=== PATIENT | male | born 1945 | race Caucasian/White ===

== ENCOUNTER 2020-05-05 00:18 | Inpatient (IN) ==
[2020-05-05] MEDS ORDERED: Naloxone 0.4 MG/ML INJ IVP PRN (03:34)
[2020-05-05] MEDS ORDERED: *HR* Promethazine 25 MG/ML VIAL IVP PRN (03:34)
[2020-05-05] MEDS ORDERED: *HR* HYDROmorphone (PF) 1 MG/ML SYRINGE IVP PRN (03:37)
[2020-05-05] MEDS ORDERED: 0.9 % Sodium Chloride 1,000 ML IVC SCH (03:45)
[2020-05-05] MEDS ORDERED: *HR* Dextrose 50 % in Water (Vial) 50 ML VIAL IVP PRN (04:54)
[2020-05-05] MEDS ORDERED: Dextrose Gel 15 GM/37.5 ML TUBE PO PRN ×2 (04:54)
[2020-05-05] MEDS ORDERED: D5% in Water 1,000 ML IVC PRN (04:54)
[2020-05-05 06:47] LABS: Bacteria,Urine Few per hpf (None-Few); Bilirubin,Urine Negative (Negative); Blood,Urine Negative (Negative); Clarity,Urine Clear (Clear); Color,Urine Light-Yellow (Yellow); Glucose,Urine (UA) 100 mg/dL (Normal); Ketones,Urine Negative (Negative); Leukocyte Esterase,Urine Negative (Negative); Mucus,Urine Few per lpf (None-Few); Nitrite,Urine Negative (Negative); Protein,Urine Negative (Neg-Trace); RBC,Urine 0-3 per hpf (0-3); Specific Gravity,Urine 1.012 (1.010-1.025); Sperm,Urine Present (None Seen); Urobilinogen,Urine Normal (Normal); WBC,Urine 0-3 per hpf (0-3)
[2020-05-05] MEDS ORDERED: TOTAL JOINT MIXTURE (100ML) INTRAART ONE (08:15)
[2020-05-05] MEDS: Insulin LISPRO 300 UNITS/3 ML VIAL SQ SCH ×3 (08:17→18:15)
[2020-05-05 08:32] LABS: Mean Corpuscular Volume 97.1 fL (83.0-100.0); Red Cell Distribution Width 12.8 % (11.5-14.5)
[2020-05-05 08:34] LABS: Hematocrit 44.1 % (37.5-50.1); Hemoglobin 14.7 g/dL (12.9-16.9); Immature Platelets 4.1 % (1.1-6.1); Mean Corpuscular HGB Conc 33.3 g/dL (31.6-35.5); Mean Corpuscular Hemoglobin 32.4 pg (28.0-33.3); Red Blood Count 4.54 M/mcL (4.19-5.50); White Blood Count 7.8 K/mcL (4.3-11.1)
[2020-05-05 08:35] LABS: INR 1.1; Prothrombin Time 13.2 Seconds (9.4-12.1)
[2020-05-05 08:50] LABS: BUN/Creatinine Ratio 27 (6-26); Blood Urea Nitrogen 16 mg/dL (8-23); Calcium 9.4 mg/dL (8.6-10.3); Carbon Dioxide 28 mEq/L (23-29); Chloride 105 mEq/L (98-107); Glucose 162 mg/dL (70-105); Magnesium 1.6 mg/dL (1.6-2.6); Osmolality,Calculated 291 (280-300); Phosphorous 3.3 mg/dL (2.7-4.5); Potassium 3.7 mEq/L (3.5-5.1); Sodium 138 mEq/L (136-145); eGFR For African Americans > 60 (> 60); eGFR For Non-African Americans > 60 (> 60)
[2020-05-05] MEDS: Insulin DETEMIR 100 UNIT/ML X5UNITS SQ SCH (09:28)
[2020-05-05] MEDS: Gabapentin 400 MG CAPSULE PO SCH ×2 (10:12→14:09)
[2020-05-05] MEDS: Ketorolac 30 MG/ML VIAL IVP PRN (13:30)
[2020-05-05] MEDS: cefTRIAXone 1,000 MG in Water for inj. (sterile) 10 ML IVP SCH (14:23)
[2020-05-05] MEDS ORDERED: ceFAZolin 2,000 MG in 0.9 % Sodium Chloride 100 ML IVPB ONE (18:39)
[2020-05-05] MEDS ORDERED: *HR* OxyCODONE Immed Rel 5 MG TABLET PO PRN (21:16)
[2020-05-05] MEDS ORDERED: Famotidine 20 MG/2 ML VIAL ONE (21:27)
[2020-05-05] MEDS ORDERED: Acetaminophen IV 1,000 MG/100 ML INFUS..BTL ONE (21:27)
[2020-05-05] MEDS ORDERED: *HR* FentaNYL (PF) 100 MCG/2 ML VIAL ONE (21:34)
[2020-05-05] MEDS ORDERED: *HR* Propofol 200 MG/20 ML VIAL IVP ONE (21:34)
[2020-05-05] MEDS ORDERED: Lidocaine HCL 4 ML Topical Solution (Laryng-O-Jet Kit Sterile Pak) TP ONE (21:36)
[2020-05-05] MEDS ORDERED: Lidocaine -MPF 2% 2 ML VIAL ONE (21:41)
[2020-05-05] MEDS ORDERED: Tranexamic Acid 1,000 MG/10 ML VIAL ONE (22:02)
[2020-05-05] MEDS ORDERED: Dexamethasone 4 MG/ML VIAL ONE (22:15)
[2020-05-05] MEDS ORDERED: Ondansetron 4 MG/2 ML VIAL ONE (22:15)
[2020-05-05] MEDS ORDERED: Ondansetron 4 MG/2 ML VIAL IVP PRN (22:36)
[2020-05-06] MEDS: CeFAZolin 2 GM/120 ML BAG IVPB SCH ×2 (03:24→08:44)
[2020-05-06] MEDS: Gabapentin 400 MG CAPSULE PO SCH ×4 (03:33→21:49)
[2020-05-06 05:41] LABS: Basophils % 0.3 %; Eosinophils % 0.1 %; Hematocrit 40.8 % (37.5-50.1); Hemoglobin 13.5 g/dL (12.9-16.9); Immature Granulocytes % 0.5 % (0-4); Immature Platelets 4.7 % (1.1-6.1); Lymphocytes # 0.3 K/mcL (0.6-4.6); Lymphocytes % 4.2 %; Mean Corpuscular HGB Conc 33.1 g/dL (31.6-35.5); Mean Corpuscular Hemoglobin 32.5 pg (28.0-33.3); Mean Corpuscular Volume 98.3 fL (83.0-100.0); Mean Platelet Volume 10.6 fL (9.4-12.4); Monocytes # 0.3 K/mcL (0.0-1.3); Monocytes % 3.3 %; Neutrophils # 6.9 K/mcL (1.6-8.9); Platelet Count 104 K/mcL (140-400); Red Blood Count 4.15 M/mcL (4.19-5.50); Red Cell Distribution Width 12.8 % (11.5-14.5); Segmented Neutrophils % 91.6 %; White Blood Count 7.6 K/mcL (4.3-11.1)
[2020-05-06 06:06] LABS: BUN/Creatinine Ratio 30 (6-26); Blood Urea Nitrogen 18 mg/dL (8-23); Calcium 8.6 mg/dL (8.6-10.3); Carbon Dioxide 25 mEq/L (23-29); Chloride 103 mEq/L (98-107); Glucose 293 mg/dL (70-105); Magnesium 1.4 mg/dL (1.6-2.6); Osmolality,Calculated 299 (280-300); Phosphorous 3.6 mg/dL (2.7-4.5); Potassium 4.5 mEq/L (3.5-5.1); Sodium 138 mEq/L (136-145); eGFR For African Americans > 60 (> 60); eGFR For Non-African Americans > 60 (> 60)
[2020-05-06] MEDS: Insulin DETEMIR 100 UNIT/ML X5UNITS SQ SCH ×2 (08:44→21:49)
[2020-05-06] MEDS: Insulin LISPRO 300 UNITS/3 ML VIAL SQ SCH ×3 (08:45→17:45)
[2020-05-06] MEDS ORDERED: Insulin Human Regular 20 UNIT in 0.9 % Sodium Chloride 10 ML IV ONE (11:49)
[2020-05-06] MEDS ORDERED: Insulin DETEMIR 100 UNIT/ML X5UNITS SQ ONE (11:49)
[2020-05-06] MEDS ORDERED: Insulin Human Regular 10 UNIT in 0.9 % Sodium Chloride 10 ML IV ONE (11:49)
[2020-05-06 12:07] LABS: Estimated Average Glucose 315 mg/dl
[2020-05-06] MEDS: Ketorolac 30 MG/ML VIAL IVP PRN ×2 (12:26→23:43)
[2020-05-06] MEDS: cefTRIAXone 1,000 MG in Water for inj. (sterile) 10 ML IVP SCH (15:15)
[2020-05-06] MEDS ORDERED: Insulin DETEMIR 100 UNIT/ML X5UNITS SQ SCH (21:00)
[2020-05-07] MEDS: Acetaminophen 325 MG TABLET PO PRN ×3 (02:26→15:30)
[2020-05-07] MEDS: Gabapentin 400 MG CAPSULE PO SCH (07:55)
[2020-05-07] MEDS: Insulin DETEMIR 100 UNIT/ML X5UNITS SQ SCH (07:56)
[2020-05-07] MEDS: Insulin LISPRO 300 UNITS/3 ML VIAL SQ SCH ×2 (07:57→11:16)
[2020-05-07 08:07] LABS: BUN/Creatinine Ratio 32 (6-26); Blood Urea Nitrogen 23 mg/dL (8-23); Calcium 8.3 mg/dL (8.6-10.3); Carbon Dioxide 29 mEq/L (23-29); Chloride 103 mEq/L (98-107); Glucose 354 mg/dL (70-105); Magnesium 1.6 mg/dL (1.6-2.6); Osmolality,Calculated 304 (280-300); Phosphorous 2.9 mg/dL (2.7-4.5); Potassium 3.7 mEq/L (3.5-5.1); Sodium 138 mEq/L (136-145); eGFR For African Americans > 60 (> 60); eGFR For Non-African Americans > 60 (> 60)
[2020-05-07 10:27] LABS: Basophils % 0.3 %; Hemoglobin 12.8 g/dL (12.9-16.9); Immature Granulocytes % 0.3 % (0-4)
[2020-05-07 10:29] LABS: Eosinophils # 0.2 K/mcL (0.0-0.6); Eosinophils % 2.1 %; Hematocrit 38.9 % (37.5-50.1); Immature Platelets 3.9 % (1.1-6.1); Lymphocytes % 13.7 %; Mean Corpuscular HGB Conc 32.9 g/dL (31.6-35.5); Mean Corpuscular Hemoglobin 31.8 pg (28.0-33.3); Mean Corpuscular Volume 96.8 fL (83.0-100.0); Mean Platelet Volume 10.5 fL (9.4-12.4); Monocytes # 0.8 K/mcL (0.0-1.3); Monocytes % 11.2 %; Neutrophils # 5.1 K/mcL (1.6-8.9); Platelet Count 137 K/mcL (140-400); Red Blood Count 4.02 M/mcL (4.19-5.50); Red Cell Distribution Width 12.7 % (11.5-14.5); Segmented Neutrophils % 72.4 %
[2020-05-07 12:26] VITALS: BP 120/72
[2020-05-07] MEDS ORDERED: Insulin DETEMIR 100 UNIT/ML X5UNITS SQ SCH (21:00)
== END 2020-05-07 16:04 | DRG 481 ==
LOC: 3NENU
PROVIDERS: ADMIT Student in an Organized Health Care Education/Training Program; ATTEND Student in an Organized Health Care Education/Training Program